=== PATIENT | male | born 1960 | race Caucasian/White ===

== ENCOUNTER 2020-10-08 12:03 | Outpatient (RCR) | payer OTHER, SELFPAY | END 2020-11-01 23:59 | disposition home or self-care (01) | LOC: SPO 12:03 | PROVIDERS: PCP Nurse Practitioner Family; Referring Provider Nurse Practitioner Family; Visit Provider Nurse Practitioner Family | DX: R47.81 Slurred speech (principal); R53.1 Weakness; G83.10 Monoplegia of lower limb affecting unspecified side; Z86.73 Personal history of transient ischemic attack (TIA), and cerebral infarction without residual deficits; I10 Essential (primary) hypertension | CPT/HCPCS: 97110; 97112; 97140; 97161; 97167; 97530; L3923 ==

== ENCOUNTER 2020-11-02 06:00 | Outpatient (RCR) | payer OTHER, SELFPAY | END 2020-12-02 23:59 | disposition home or self-care (01) | LOC: SPO 06:00 | PROVIDERS: PCP Nurse Practitioner Family; Referring Provider Nurse Practitioner Family; Visit Provider Nurse Practitioner Family | DX: R47.81 Slurred speech (principal); R53.1 Weakness; G83.10 Monoplegia of lower limb affecting unspecified side; Z86.73 Personal history of transient ischemic attack (TIA), and cerebral infarction without residual deficits; I10 Essential (primary) hypertension | CPT/HCPCS: 97110; 97112; 97140 ==

== ENCOUNTER 2020-12-03 06:00 | Outpatient (RCR) | payer OTHER, SELFPAY | END 2021-01-01 23:59 | disposition home or self-care (01) | LOC: SPO 06:00 | PROVIDERS: PCP Nurse Practitioner Family; Referring Provider Nurse Practitioner Family; Visit Provider Nurse Practitioner Family | DX: R47.81 Slurred speech (principal); R53.1 Weakness; Z86.73 Personal history of transient ischemic attack (TIA), and cerebral infarction without residual deficits; I10 Essential (primary) hypertension | CPT/HCPCS: 97110; 97112; 97116; 97140; 97168 ==

== ENCOUNTER 2021-01-02 06:00 | Outpatient (RCR) | payer OTHER, SELFPAY | END 2021-02-01 23:59 | disposition home or self-care (01) | LOC: SPO 06:00 | PROVIDERS: PCP Nurse Practitioner Family; Referring Provider Nurse Practitioner Family; Visit Provider Nurse Practitioner Family | DX: R47.81 Slurred speech (principal); R53.1 Weakness; G83.10 Monoplegia of lower limb affecting unspecified side; Z86.73 Personal history of transient ischemic attack (TIA), and cerebral infarction without residual deficits; I10 Essential (primary) hypertension | CPT/HCPCS: 97110; 97112; 97116 ==

== ENCOUNTER → 2021-11-19 08:23 | Outpatient (BNVA) | payer MEDICARE, SELFPAY | PROVIDERS: PCP Nurse Practitioner Family; Visit Provider Specialist | DX: G81.14 Spastic hemiplegia affecting left nondominant side (principal) | CPT/HCPCS: 64643; 64644; J0585 ==

== ENCOUNTER 2021-12-01 19:55 | Emergency (ER) | payer OTHER, MEDICARE, SELFPAY ==
[2021-12-01 20:22] VITALS: BMI 41.1
[2021-12-01 20:26] VITALS: BP 171/94; PULSE 74; RESP 16; TEMP 37.1; O2SAT 94
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
[2021-12-01] MEDS: HYDROcodone-acetaminophen 5-325 mg Tablet 1 TAB PO (20:37)
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
[2021-12-02 00:05] VITALS: BP 141/98; PULSE 84; RESP 20; O2SAT 95
[2021-12-02] MEDS: clopidogrel 75 mg Tablet PO (00:06)
[2021-12-02] MEDS: baclofen 10 mg Tablet PO (00:06)
[2021-12-02] MEDS: amlodipine 10 mg Tablet PO (00:06)
--- NOTE | 2021-12-02 08:59 | DCPLANNER ---
tax accounting manager was asked to help arrange transportation for patient to get home. tax accounting manager called [employer], spoke with Denny arranged for transport company to take patient home.
--- NOTE | 2021-12-02 10:23 | DCPLANNER ---
Addendum entered by Payton Gil 12/17/21 15:00: Patient had a follow up appointment with ortho - patient did attend appointment Addendum entered by Payton Gil 12/03/21 14:28: Patient has a follow up appointment scheduled for Wednesday, December 08, 2021 at 12:[address] Rocha at ortho. Clinic will call patient with appointment information. Original Note: loss prevention and safety manager had message to schedule a follow up appointment for patient with ortho. loss prevention and safety manager sent patients information to the front office staff at ortho. Patients information will be printed and reviewed. Clinic will call patient with appointment information.
== END 2021-12-02 01:00 | disposition home or self-care (01) ==
PROVIDERS: Emergency Provider Emergency Medicine; PCP Nurse Practitioner Family
DX: S82.65XA Nondisplaced fracture of lateral malleolus of left fibula, initial encounter for closed fracture (principal); Z79.02 Long term (current) use of antithrombotics/antiplatelets; Z86.73 Personal history of transient ischemic attack (TIA), and cerebral infarction without residual deficits; V89.2XXA Person injured in unspecified motor-vehicle accident, traffic, initial encounter
CPT/HCPCS: 29515; 71045; 73610; 99283

== ENCOUNTER → 2021-12-08 12:12 | Outpatient (BNVA) | payer OTHER, MEDICARE, SELFPAY | PROVIDERS: PCP Clinical Nurse Specialist Adult Health; Visit Provider Student in an Organized Health Care Education/Training Program | DX: S82.832A Other fracture of upper and lower end of left fibula, initial encounter for closed fracture (principal); V49.9XXA Car occupant (driver) (passenger) injured in unspecified traffic accident, initial encounter | CPT/HCPCS: 73610; 99204 ==

== ENCOUNTER → 2021-12-22 13:22 | Outpatient (BNVA) | payer MEDICARE, SELFPAY | PROVIDERS: PCP Clinical Nurse Specialist Adult Health; Visit Provider Student in an Organized Health Care Education/Training Program | DX: V89.2XXA Person injured in unspecified motor-vehicle accident, traffic, initial encounter (principal); S82.832A Other fracture of upper and lower end of left fibula, initial encounter for closed fracture | CPT/HCPCS: 73610 ==

== ENCOUNTER 2021-12-22 15:17 | Outpatient (CLI) | payer MEDICARE, SELFPAY | END 2021-12-22 15:18 | disposition home or self-care (01) | LOC: SPT 15:19 | PROVIDERS: PCP Clinical Nurse Specialist Adult Health; Visit Provider Student in an Organized Health Care Education/Training Program | DX: S82.832D Other fracture of upper and lower end of left fibula, subsequent encounter for closed fracture with routine healing (principal); V89.2XXA Person injured in unspecified motor-vehicle accident, traffic, initial encounter | CPT/HCPCS: 97760; 99213; L4361 ==

== ENCOUNTER → 2022-01-05 10:02 | Outpatient (BNVA) | payer MEDICARE, SELFPAY | PROVIDERS: PCP Clinical Nurse Specialist Adult Health; Visit Provider Student in an Organized Health Care Education/Training Program | DX: V89.0XXA Person injured in unspecified motor-vehicle accident, nontraffic, initial encounter (principal); S82.832A Other fracture of upper and lower end of left fibula, initial encounter for closed fracture | CPT/HCPCS: 73610; 99213 ==

== ENCOUNTER → 2022-01-19 09:45 | Outpatient (BNVA) | payer MEDICARE, SELFPAY | PROVIDERS: PCP Clinical Nurse Specialist Adult Health; Visit Provider Student in an Organized Health Care Education/Training Program | DX: S82.832D Other fracture of upper and lower end of left fibula, subsequent encounter for closed fracture with routine healing (principal); X58.XXXD Exposure to other specified factors, subsequent encounter | CPT/HCPCS: 29405; 73610; 99214 ==

== ENCOUNTER → 2022-02-08 09:07 | Outpatient (BNVA) | payer MEDICARE, SELFPAY | PROVIDERS: PCP Clinical Nurse Specialist Adult Health; Visit Provider Student in an Organized Health Care Education/Training Program | DX: X58.XXXA Exposure to other specified factors, initial encounter (principal); S82.832A Other fracture of upper and lower end of left fibula, initial encounter for closed fracture | CPT/HCPCS: 73610; 99213 ==

== ENCOUNTER → 2022-02-11 11:09 | Outpatient (BNVA) | payer MEDICARE, SELFPAY | PROVIDERS: PCP Clinical Nurse Specialist Adult Health; Visit Provider Specialist | DX: G81.14 Spastic hemiplegia affecting left nondominant side (principal) | CPT/HCPCS: 64644; J0585 ==

== ENCOUNTER → 2022-03-01 10:19 | Outpatient (BNVA) | payer MEDICARE, SELFPAY | PROVIDERS: PCP Clinical Nurse Specialist Adult Health; Visit Provider Student in an Organized Health Care Education/Training Program | DX: S82.832A Other fracture of upper and lower end of left fibula, initial encounter for closed fracture (principal); V89.2XXA Person injured in unspecified motor-vehicle accident, traffic, initial encounter | CPT/HCPCS: 73610; 99213 ==

== ENCOUNTER → 2022-03-30 13:43 | Outpatient (BNVA) | payer MEDICARE, SELFPAY | PROVIDERS: PCP Clinical Nurse Specialist Adult Health; Visit Provider Student in an Organized Health Care Education/Training Program | DX: S82.832A Other fracture of upper and lower end of left fibula, initial encounter for closed fracture (principal); X58.XXXA Exposure to other specified factors, initial encounter | CPT/HCPCS: 73610; 99213 ==

== ENCOUNTER → 2022-05-06 10:46 | Outpatient (BNVA) | payer MEDICARE, SELFPAY | PROVIDERS: PCP Clinical Nurse Specialist Adult Health; Visit Provider Specialist | DX: I69.354 Hemiplegia and hemiparesis following cerebral infarction affecting left non-dominant side (principal); S82.832G Other fracture of upper and lower end of left fibula, subsequent encounter for closed fracture with delayed healing; V89.9XXD Person injured in unspecified vehicle accident, subsequent encounter | CPT/HCPCS: 64644; J0585 ==

== ENCOUNTER → 2022-06-03 12:59 | Outpatient (BNVA) | payer MEDICARE, SELFPAY | PROVIDERS: PCP Clinical Nurse Specialist Adult Health; Visit Provider Student in an Organized Health Care Education/Training Program | DX: S82.402D Unspecified fracture of shaft of left fibula, subsequent encounter for closed fracture with routine healing (principal); X58.XXXD Exposure to other specified factors, subsequent encounter | CPT/HCPCS: 73610; 99213 ==

== ENCOUNTER → 2022-06-08 10:23 | Outpatient (BNVA) | payer MEDICARE, SELFPAY | PROVIDERS: PCP Clinical Nurse Specialist Adult Health; Visit Provider Podiatrist Foot & Ankle Surgery | DX: M25.372 Other instability, left ankle (principal); S82.832S Other fracture of upper and lower end of left fibula, sequela; I73.9 Peripheral vascular disease, unspecified; G62.9 Polyneuropathy, unspecified; V89.2XXS Person injured in unspecified motor-vehicle accident, traffic, sequela | CPT/HCPCS: 99203 ==

== ENCOUNTER → 2022-07-08 08:18 | Outpatient (BNVA) | payer MEDICARE, SELFPAY | PROVIDERS: PCP Clinical Nurse Specialist Adult Health; Visit Provider Clinical Nurse Specialist Adult Health | DX: I10 Essential (primary) hypertension (principal); E55.9 Vitamin D deficiency, unspecified; E53.8 Deficiency of other specified B group vitamins; I63.511 Cerebral infarction due to unspecified occlusion or stenosis of right middle cerebral artery | CPT/HCPCS: 80053; 80061; 82306; 82607; 84443; 85025 ==

== ENCOUNTER → 2022-08-09 09:53 | Outpatient (BNVA) | payer MEDICARE, SELFPAY | PROVIDERS: PCP Clinical Nurse Specialist Adult Health; Visit Provider Specialist | DX: G81.14 Spastic hemiplegia affecting left nondominant side (principal) | CPT/HCPCS: 64644; J0585 ==

== ENCOUNTER → 2022-09-29 10:31 | Outpatient (BNVA) | payer MEDICARE, SELFPAY | PROVIDERS: PCP Clinical Nurse Specialist Adult Health; Visit Provider Podiatrist Foot & Ankle Surgery | DX: M25.572 Pain in left ankle and joints of left foot (principal); X58.XXXS Exposure to other specified factors, sequela; M25.372 Other instability, left ankle; S82.832S Other fracture of upper and lower end of left fibula, sequela; Z86.73 Personal history of transient ischemic attack (TIA), and cerebral infarction without residual deficits | CPT/HCPCS: 99213 ==

== ENCOUNTER → 2022-11-18 12:11 | Outpatient (BNVA) | payer MEDICARE, SELFPAY | PROVIDERS: PCP Clinical Nurse Specialist Adult Health; Visit Provider Specialist | DX: I10 Essential (primary) hypertension; G81.14 Spastic hemiplegia affecting left nondominant side; Z86.73 Personal history of transient ischemic attack (TIA), and cerebral infarction without residual deficits | CPT/HCPCS: 64644; 99213; J0585 ==

== ENCOUNTER → 2023-04-01 11:54 | Outpatient (BNVA) | payer MEDICARE, SELFPAY | PROVIDERS: PCP Clinical Nurse Specialist Adult Health; Visit Provider Clinical Nurse Specialist Adult Health | DX: I87.2 Venous insufficiency (chronic) (peripheral) (principal) | CPT/HCPCS: 80053; 83880; 85025 ==

== ENCOUNTER → 2023-04-11 12:52 | Outpatient (BNVA) | payer MEDICARE, SELFPAY | PROVIDERS: PCP Clinical Nurse Specialist Adult Health; Visit Provider Podiatrist Foot & Ankle Surgery | DX: M25.372 Other instability, left ankle (principal); Z86.73 Personal history of transient ischemic attack (TIA), and cerebral infarction without residual deficits | CPT/HCPCS: 99213 ==